=== PATIENT | male | born 1975 | race Two or more races ===

== ENCOUNTER → 2025-01-28 | Outpatient (CLI) | payer BC, SELFPAY ==
--- NOTE | 2025-01-28 10:45 | XR_ITS ---
Examination: Testicular sonography complete TECHNIQUE: Grayscale sonographic images testes, assessment arterial inflow venous outflow Doppler spectral analysis carful analysis Exam date and time: January 28, 2025 1116 hours Comparison April 02, 2020 INDICATIONS: Left testicular pain beginning 3 weeks ago with swelling. FINDINGS: Right testis 4.2 cm epididymis 14 mm Arterial flow testicle. No testicular mass Minimal hydrocele Left testis 4.2 cm epididymis 15 mm 4 mm left epididymal cyst Arterial flow testicle. No testicular mass Minimal hydrocele IMPRESSION: No testicular torsion or testicular mass Small benign left epididymal cyst 4 x 4 by 4 mm
[2025-01-28 12:42] LABS: Syphilis Nonreactive (Nonreactive)
[2025-01-28 13:25] LABS: Hepatitis A Antibody IgM Non Reactive (Non React); Hepatitis B Core Antibody IgM Non Reactive (Non React); Hepatitis B Surface Antigen Non Reactive (Non React); Hepatitis C Antibody Non Reactive (Non React)
[2025-01-28 16:05] LABS: Chlamydia trachomatis PCR Negative (Not Detect); Neisseria Gonorrhoeae DNA PCR Negative (Not Detect); Trichomonas Negative (Negative)
[2025-02-02 08:18] LABS: HIV Ag/Ab, 4th Gen NON-REACTIVE
== END | disposition home or self-care (01) ==
LOC: CDIM 10:51 → COPL 11:33
PROVIDERS: PCP Family Medicine; Referring Provider Student in an Organized Health Care Education/Training Program; Visit Provider Student in an Organized Health Care Education/Training Program
DX: Z11.3 Encounter for screening for infections with a predominantly sexual mode of transmission (principal); N50.3 Cyst of epididymis
CPT/HCPCS: 36415; 76870; 80074; 86780; 87389; 87491; 87591; 87661